=== PATIENT | female | born 1950 | race Caucasian/White ===

== ENCOUNTER 2021-05-18 09:02 | Inpatient (IN) | payer MEDICARE, OTHER ==
[~2021-05-18] VITALS: Ht 157.5 cm; Wt 128.0 kg
[2021-05-18 09:28] VITALS: BP 160/68; PULSE 67; TEMP 97.4
[2021-05-18] MEDS ORDERED: CEPHALEXIN500 M1 (10:15)
[2021-05-18 10:35] LABS: CALCIUM 9.6 mg/dL (8.4-10.2); CREATININE, serum 1.16 (0.52-1.25)
[2021-05-18 11:52] VITALS: BP 146/73; PULSE 75; TEMP 98.5
[2021-05-18 12:13] LABS: BASO % 0.3 % (0.0-2.0); EOS # 0.5 (0.0-0.7); EOS % 4.5 % (0-4.0); GRAN % 71.2 % (42.2-75.2); HEMOGLOBIN 11.2 g/dl (12.5-16.0); LYMPH % 17.7 % (20.0-51.0); MEAN CELL VOLUME 94 fl (80.0-100.0); MEAN CORPUSCULAR HEMOGLOBIN 30 pg (27.0-31.0); MEAN CORPUSCULAR HGB CONC 32 g/dl (33.0-37.0); MONO # 0.7 (0.1-0.6); MONO % 5.8 % (1.7-9.3); PLATELET COUNT 280 K/mm3 (130-400); RED BLOOD COUNT 3.77 M/mm3 (4.10-5.30); REDCELL DISTRIBUTION WIDTH-CV 14.6 % (11.5-14.5)
[2021-05-18 12:15] LABS: HEMATOCRIT 35.6 % (37.0-47.0)
[2021-05-18] MEDS ORDERED: GLUCOPHAGE1000 MG PO (13:01)
[2021-05-18] MEDS ORDERED: LIPITOR 80MG80 MG PO (13:01)
[2021-05-18] MEDS ORDERED: COREG 6.256.25 MG/TA PO (13:02)
[2021-05-18] MEDS ORDERED: PRINZIDE 12.5 M1 TA1 PO (13:02)
[2021-05-18] MEDS ORDERED: ZAROXOLYN5 MG PO (13:03)
[2021-05-18] MEDS ORDERED: PRILOSEC 20MG20 MG PO (13:03)
[2021-05-18] MEDS ORDERED: K-TAB20 PO (13:03)
[2021-05-18] MEDS ORDERED: ALDACTONE 25MG25 M1 PO (13:04)
[2021-05-18] MEDS ORDERED: PERCOCET 325 MG1 TA2 PO (13:04)
[2021-05-18] MEDS ORDERED: LASIX 80MG TABL80 MG PO (13:05)
[2021-05-18 13:13] LABS: MUCOUS Present /lpf; PH 8 (5-8); SQUAMOUS EPITHELIAL 0-2 /hpf; URINE APPEARANCE Clear; URINE BACTERIA None Seen /hpf; URINE BILIRUBIN Negative (NEGATIVE); URINE BLOOD Negative (NEGATIVE); URINE COLOR Straw; URINE GLUCOSE Negative (NEGATIVE); URINE KETONE Negative (NEGATIVE); URINE LEUKOCYTE ESTERASE 1+ (NEGATIVE); URINE NITRATE Negative (NEGATIVE); URINE PROTEIN(semi-quant) Negative (NEGATIVE); URINE RBC 0-2 /hpf; URINE UROBILINOGEN Negative (NEGATIVE)
[2021-05-18 15:59] LABS: IRON,SERUM 68 ug/dL (35-150)
[2021-05-18 16:08] LABS: TOTAL IRON BINDING CAPACITY 324 ug/dL (265-497)
[2021-05-18 17:04] VITALS: BP 119/97; BP 144/62; PULSE 79; TEMP 98.6
[2021-05-18 17:21] LABS: COLLECTION METHOD CLEAN CATCH
--- NOTE | 2021-05-18 18:33 | NUR ---
PT ADMITTED FROM HOME TODAY. HOSPITALIST MADE AWARE THAT PT IS HERE. ADMISSION ASSESSMENT COMPLETED. PT ON 3L OF OXYGEN SHE STATES THAT IS WHAT SHE USES AT HOME. PT ADMITTED WITH A CANE, A SMALL TANK OF PORTABLE OXYGEN, CELL PHONE, CLOTHES, DENTURE. IV ACCESS INVESTMENT SPECIALIST. TELE MONITOR PLACED. BLE SWOLLEN, WOUND NOTED ON PT LOWER EXTREMITY. PT ENCOURAGE TO ELEVATE BLE. URINE SAMPLES COLLECTED ORDERED. COVID SAMPLE COLLECTED.ISOLATION PRECAUTION MAINTAINED UNTIL TEST RESULTS RECEIVED. PT MADE AWARE OF THE VISITATION POLICY. COMFORT MEASURES IN PLACE. CALL-LIGHT IN REACH. BED IN LOW POSITION. WILL CONTINUE TO MONITOR.
[2021-05-18 20:39] VITALS: BP 119/52; PULSE 78; TEMP 97.6
--- NOTE | 2021-05-18 20:45 | NUR ---
Initial shift assessment done, sitting on edge of bed- no requests, VSS, bilateral lower legs w/3-4+ edema , left greater than right,, o2 at 2L/nc. Pleasant, alert/oriented. NPO after MN for GIUSEPPE/heart cath tomorrow
[2021-05-18 23:27] LABS: FOLATE (FOLIC ACID) 16.8 ng/mL (2.0-20.0)
--- NOTE | 2021-05-18 23:54 | NUR ---
PT WEARS 2 TO 3 LPM AT NIGHT WHEN SLEEPING. THIS RT ENTERED ROOM AT 1930 AND FOUND PT SLEEPING WHILE ON 2 LPM, PT SATURATIONS WERE 87%. THEREFORE, TEST WILL BE DONE ON PATIENT WITH 2 LPM ON. TEST WAS ORDERED TO BE DONE ON ROOM AIR BUT SATUARTIONS CANNOT BE MAINTAINED ABOVE 90 WHILE SLEEPING WITHOUT OXYGEN.
[2021-05-19] VITALS (15 sets, daily range): BP systolic 97–135; BP diastolic 44–69; PULSE 63–79; TEMP 97.5–98
--- NOTE | 2021-05-19 06:33 | NUR ---
Quiet night- slept well. NPO after MN. Overnight noc ox done last night. VSS.
[2021-05-19 06:57] LABS: HEMOGLOBIN 10.5 g/dl (12.5-16.0); MEAN CELL VOLUME 95 fl (80.0-100.0); MEAN CORPUSCULAR HEMOGLOBIN 30 pg (27.0-31.0); MEAN CORPUSCULAR HGB CONC 31 g/dl (33.0-37.0); MEAN PLATELET VOLUME 11.3 fl (7.4-10.4); PLATELET COUNT 277 K/mm3 (130-400); RED BLOOD COUNT 3.55 M/mm3 (4.10-5.30); REDCELL DISTRIBUTION WIDTH-CV 14.6 % (11.5-14.5)
[2021-05-19 06:59] LABS: HEMATOCRIT 33.7 % (37.0-47.0)
[2021-05-19 07:00] LABS: INR 1.1 (0.8-3.0); PROTHROMBIN TIME 12.6 SECONDS (9.7-12.8)
[2021-05-19 07:03] LABS: PARTIAL THROMBOPLASTIN TIME 29.7 SECONDS (26.0-37.0)
[2021-05-19 07:04] LABS: CALCIUM 9.6 mg/dL (8.4-10.2); CREATININE, serum 1.01 (0.52-1.25); POTASSIUM 4.1 mmol/L (3.4-5.0)
--- NOTE | 2021-05-19 08:05 | NUR ---
Pt off unit for GIUSEPPE and heart cath at this time.
--- NOTE | 2021-05-19 10:18 | NUR ---
Pt back from heart cath at this time. Resting comfortably in bed. Vitals stable. Right radial and right femoral sites CDI, soft w/o hematoma. Pt denies needs at this time. Continuing to monitor.
--- NOTE | 2021-05-19 11:29 | NUR ---
SW's met with the patient to discuss discharge plan. The patient lives in [place] with her , Min (c.ph#[phone]/h.ph#[phone]). She reports independence with ADLs and has a cane, walkers, and home oxygen from [employer]. The patient's PCP is Dr. Mitch Chahal and she receives her medications from [facility]. She reports no difficulties obtaining her meds. The patient does not have a DPOA-HC in EMR, but she states that she may have one completed. The patient was interested in obtaining a form though, in case she does not have one. EDIE provided. The patient plans to return home with her upon discharge. The patient has CHF. EDIE discussed home health services and how they can provide education for CHF. The patient declined home health. She reports that her daughter is an RN and that she can always call her if she has any questions. PT/OT has been ordered. EDIE to continue to follow. *Discharge plan: home with . Awaiting therapy's recs*
--- NOTE | 2021-05-19 22:19 | NUR ---
Patient is resting in bed, alert and oriented x 4, vital signs stable, no pain, nausea or vomiting. She is at 2 L 02 nasal canula. Still weraing the arm band. Incition in the right groin looks dry and clean. It is covered with gauze. She is using the spirometer with no problems. No further needs at this time. Call light within reach.
[2021-05-20 00:15] VITALS: BP 126/56; PULSE 66; TEMP 98.2
--- NOTE | 2021-05-20 06:03 | NUR ---
Patient has been stable along night. Continues with 2L O2 nasal canula. No further needs at this time. Call light within reach.
[2021-05-20 06:57] LABS: HEMOGLOBIN 11.1 g/dl (12.5-16.0); MEAN CELL VOLUME 95 fl (80.0-100.0); MEAN CORPUSCULAR HEMOGLOBIN 29 pg (27.0-31.0); MEAN CORPUSCULAR HGB CONC 31 g/dl (33.0-37.0); MEAN PLATELET VOLUME 10.7 fl (7.4-10.4); PLATELET COUNT 293 K/mm3 (130-400); RED BLOOD COUNT 3.78 M/mm3 (4.10-5.30); REDCELL DISTRIBUTION WIDTH-CV 14.5 % (11.5-14.5)
[2021-05-20 07:04] LABS: HEMATOCRIT 35.8 % (37.0-47.0)
[2021-05-20 07:11] LABS: CALCIUM 9.8 mg/dL (8.4-10.2); CREATININE, serum 0.9 (0.52-1.25); POTASSIUM 4.3 mmol/L (3.4-5.0)
[2021-05-20 07:15] VITALS: BP 136/68; PULSE 67; TEMP 97.9
--- NOTE | 2021-05-20 08:51 | NUR ---
Shift assessment preformed. Scheduled medications given. Patient denies any pain, discomfort, SOA, N/V/D. Patient is currently requiring 2L of O2 via nasal cannula. Hearth cath sites are dressed with bandaides, which are clean dry, and intact. VSS. Patient denies any further needs at this time. Call light in reach.
[2021-05-20 11:12] VITALS: BP 131/57; PULSE 70; TEMP 97.7
--- NOTE | 2021-05-20 12:09 | NUR ---
Access Analyst visited with patient but nothing else needed at this time.
--- NOTE | 2021-05-20 14:32 | NUR ---
Bumex drip started. Roger catheter placed. 8ml placed in ballon. Securement device in place. VSS. Patient denies any further needs at this time. Call light in reach.
[2021-05-20 16:49] VITALS: BP 122/52; PULSE 73; TEMP 97.8
--- NOTE | 2021-05-20 17:03 | NUR ---
Patient had an ok day. Bumex drip running as ordered. Patient has had good ouput. Patient denies any pain, discomfort, SOA, chest pain, N/V/D, or further needs at this time. Call light in reach.
[2021-05-20 19:31] VITALS: BP 116/46; PULSE 71; TEMP 98.4
--- NOTE | 2021-05-20 20:45 | NUR ---
Initial shift assessment done- denies pain, has Bumex drip IV at 5cc/hr [0.5mg/hr] , Roger with good amounts clear yellow urine. Bilateral lower extreity edema 3+, left > right. tele on. o2 at 2L/nc.
[2021-05-20 23:48] VITALS: BP 136/98; PULSE 73; TEMP 97.6
[2021-05-21 03:22] VITALS: BP 150/65; PULSE 74; TEMP 98.1
--- NOTE | 2021-05-21 05:08 | NUR ---
Quiet night- no requests, Bumex drip continues at 5cc/hr,, Very good output from Kana, has had 2400 out so far this shift,VSS
--- NOTE | 2021-05-21 06:02 | NUR ---
Another 575cc of urine out per Roger at this time
[2021-05-21 07:22] LABS: BASO % 0.3 % (0.0-2.0); EOS # 0.4 (0.0-0.7); EOS % 3.1 % (0-4.0); GRAN # 9.3 (1.4-6.5); GRAN % 79.3 % (42.2-75.2); LYMPH # 1.3 (1.2-3.4); LYMPH % 10.7 % (20.0-51.0); MEAN CELL VOLUME 93 fl (80.0-100.0); MEAN CORPUSCULAR HEMOGLOBIN 30 pg (27.0-31.0); MEAN CORPUSCULAR HGB CONC 32 g/dl (33.0-37.0); MEAN PLATELET VOLUME 11.2 fl (7.4-10.4); MONO # 0.7 (0.1-0.6); MONO % 6.2 % (1.7-9.3); PLATELET COUNT 267 K/mm3 (130-400); RED BLOOD COUNT 3.69 M/mm3 (4.10-5.30); REDCELL DISTRIBUTION WIDTH-CV 14.3 % (11.5-14.5)
[2021-05-21 07:27] VITALS: BP 130/55; PULSE 73; TEMP 98
[2021-05-21 07:27] LABS: HEMATOCRIT 34.4 % (37.0-47.0)
[2021-05-21 07:35] LABS: CALCIUM 9.6 mg/dL (8.4-10.2); CREATININE, serum 0.85 (0.52-1.25); POTASSIUM 3.5 mmol/L (3.4-5.0)
--- NOTE | 2021-05-21 07:45 | NUR ---
Scheduled medications given. Shift assessment preformed. Roger catheter in place, securment device in use, dependent drainage, no kinks in tubing. Patient denies any pain, discomfort, or further needs at this time. Bumex drip running as ordered. Call light in reach.
[2021-05-21 11:09] VITALS: BP 106/57; PULSE 74; TEMP 97.8
[2021-05-21 16:51] VITALS: BP 99/51; PULSE 70; TEMP 97.9
--- NOTE | 2021-05-21 18:42 | NUR ---
Patient has had an uneventful day. Bumex drip running as ordered. Patient BS have been running in the 2-[address] hundreds[address] Levemir ordered by Dr. Yu. Patient denies any pain, discomfort, SOA, or further needs at this time. Patient A&O. Call light in reach. VSS.
--- NOTE | 2021-05-21 19:56 | NUR ---
Initial shift assessment done- denies pain-denies SOB, bilateral lower legs edematous but much improved in the last 24 hrs. Bumex drip at 5cc/hr to right hand. Roger with good amounts clear yellow urine.
[2021-05-21 20:16] VITALS: BP 107/53; PULSE 72; TEMP 97.7
[2021-05-21 23:42] VITALS: BP 112/55; PULSE 74; TEMP 97.8
[2021-05-22 04:14] VITALS: BP 113/62; PULSE 67; TEMP 97.6
--- NOTE | 2021-05-22 06:24 | NUR ---
Quiet night-- no requests, VSS, good output from Roger, continues on Bumex drip at 5cc/hr.
[2021-05-22 06:53] LABS: BASO % 0.2 % (0.0-2.0); EOS # 0.3 (0.0-0.7); EOS % 2.4 % (0-4.0); GRAN # 10.7 (1.4-6.5); GRAN % 79.9 % (42.2-75.2); HEMOGLOBIN 11.2 g/dl (12.5-16.0); LYMPH # 1.4 (1.2-3.4); LYMPH % 10.4 % (20.0-51.0); MEAN CELL VOLUME 93 fl (80.0-100.0); MEAN CORPUSCULAR HEMOGLOBIN 30 pg (27.0-31.0); MEAN CORPUSCULAR HGB CONC 32 g/dl (33.0-37.0); MEAN PLATELET VOLUME 11.2 fl (7.4-10.4); MONO # 0.9 (0.1-0.6); MONO % 6.7 % (1.7-9.3); PLATELET COUNT 264 K/mm3 (130-400); RED BLOOD COUNT 3.78 M/mm3 (4.10-5.30); REDCELL DISTRIBUTION WIDTH-CV 14.4 % (11.5-14.5)
[2021-05-22 06:54] LABS: HEMATOCRIT 35.2 % (37.0-47.0)
[2021-05-22 07:00] LABS: CALCIUM 9.4 mg/dL (8.4-10.2); CREATININE, serum 1.13 (0.52-1.25); POTASSIUM 3.5 mmol/L (3.4-5.0)
[2021-05-22 07:58] VITALS: BP 114/58; PULSE 78; TEMP 98
--- NOTE | 2021-05-22 08:32 | NUR ---
Pt awake upon entry, eating breakfast. No C/O pain at this time. Shift assessment complete, left Pt call light in reach, needs met.
[2021-05-22] MEDS ORDERED: BUMEX2 MG PO (09:27)
[2021-05-22] MEDS ORDERED: OMNICEF 300MG300 MG PO (09:27)
[2021-05-22] MEDS ORDERED: B-121000 MCG PO (09:28)
[2021-05-22] MEDS ORDERED: PRINIVIL40 MG PO (09:29)
--- NOTE | 2021-05-22 09:57 | NUR ---
The hospitalist is ready to d/c the patient today. An exercise ox was ordered. RT notified SW that the patient qualified for 2 liters of oxygen. The patient is already established with [facility]. SW contacted Ayana at [facility] and updated her on the above. Ayana confirms that the patient is already established with them and receives oxygen from them. Ayana reports that she does not need any additional documentation or the exercise ox. SW met with the patient to review d/c plan. The patient plans to return home with her . SW presented and read the IM form outloud to her. The patient verbalized understanding and signed the form. SW provided her with a copy. No additional needs at this time.
--- NOTE | 2021-05-22 14:00 | NUR ---
Pt discharged to home, discussed discharge instructions with Pt. Pt escorted to entrance by PCT via WC, Pt left with spouse in private transportation.
== END 2021-05-22 14:00 | disposition home or self-care (01) | DRG 287 ==
LOC: MEDICAL 09:02
PROVIDERS: Physician Assistant; ADMIT Student in an Organized Health Care Education/Training Program
PROC: 4A023N6 Measurement of Cardiac Sampling and Pressure, Right Heart, Percutaneous Approach (ICD-10-PCS; principal; 2021-05-18)
PROC: B2111ZZ Fluoroscopy of Multiple Coronary Arteries using Low Osmolar Contrast (ICD-10-PCS; 2021-05-18)
DX: I11.0 Hypertensive heart disease with heart failure (principal); Q21.1 Atrial septal defect; E87.3 Alkalosis; J98.11 Atelectasis; N39.0 Urinary tract infection, site not specified; E87.70 Fluid overload, unspecified; I50.33 Acute on chronic diastolic (congestive) heart failure; I42.9 Cardiomyopathy, unspecified; E78.5 Hyperlipidemia, unspecified; I44.7 Left bundle-branch block, unspecified; G47.33 Obstructive sleep apnea (adult) (pediatric); K21.9 Gastro-esophageal reflux disease without esophagitis; Z90.710 Acquired absence of both cervix and uterus; Z90.89 Acquired absence of other organs; Z79.84 Long term (current) use of oral hypoglycemic drugs; Z20.822 Contact with and (suspected) exposure to COVID-19; I27.20 Pulmonary hypertension, unspecified; D64.9 Anemia, unspecified; I65.22 Occlusion and stenosis of left carotid artery; E04.1 Nontoxic single thyroid nodule
CPT/HCPCS: 99222-AI; 99232-AI; 99233-AI; 99239; A9284; C1769; C1894; J1644; J1650; J1815; J1940; J2250; J2704; J3010; Q9967

== ENCOUNTER 2021-05-24 11:47 | Inpatient (IN) | payer MEDICARE, OTHER ==
[~2021-05-24] VITALS: Ht 157.5 cm; Wt 149.1 kg
[~2021-05-24 11:47] MED LIST: ALDACTONE 25MG25 M1 PO; B-121000 MCG PO; BUMEX2 MG PO; CEPHALEXIN500 M1; COREG 6.256.25 MG/TA PO; GLUCOPHAGE1000 MG PO; K-TAB20 PO; LASIX 80MG TABL80 MG PO; LIPITOR 80MG80 MG PO; OMNICEF 300MG300 MG PO; PERCOCET 325 MG1 TA2 PO; PRILOSEC 20MG20 MG PO; PRINIVIL40 MG PO; PRINZIDE 12.5 M1 TA1 PO; ZAROXOLYN5 MG PO
[2021-05-24 13:03] LABS: BASO # 0.1 (0.0-0.2); BASO % 0.4 % (0.0-2.0); EOS # 0.8 (0.0-0.7); GRAN # 11.7 (1.4-6.5); GRAN % 72.3 % (42.2-75.2); HEMOGLOBIN 11.3 g/dl (12.5-16.0); LYMPH # 2.6 (1.2-3.4); MEAN CELL VOLUME 95 fl (80.0-100.0); MEAN CORPUSCULAR HEMOGLOBIN 29 pg (27.0-31.0); MEAN CORPUSCULAR HGB CONC 31 g/dl (33.0-37.0); MEAN PLATELET VOLUME 11.3 fl (7.4-10.4); MONO # 0.9 (0.1-0.6); MONO % 5.7 % (1.7-9.3); PLATELET COUNT 295 K/mm3 (130-400); RED BLOOD COUNT 3.86 M/mm3 (4.10-5.30)
[2021-05-24 13:04] LABS: HEMATOCRIT 36.5 % (37.0-47.0)
[2021-05-24 13:12] LABS: BILIRUBIN,TOTAL 0.5 mg/dL (0.0-1.0); CALCIUM 8.9 mg/dL (8.4-10.2); CREATININE, serum 5.78 (0.52-1.25); TOTAL PROTEIN 8.3 gm/dL (6.4-8.2)
[2021-05-24 13:23] LABS: TROPONIN-I 0.016 ng/mL (0.000-0.035)
[2021-05-24 14:06] LABS: COLLECTION METHOD CLEAN CATCH
[2021-05-24 14:22] LABS: CALCIUM 8.5 mg/dL (8.4-10.2); CREATININE, serum 5.62 (0.52-1.25); POTASSIUM 4.6 mmol/L (3.4-5.0)
[2021-05-24 14:31] LABS: MUCOUS Present /lpf; PH 5 (5-8); URINE APPEARANCE Cloudy; URINE BACTERIA None Seen /hpf; URINE BILIRUBIN Negative (NEGATIVE); URINE BLOOD 1+ (NEGATIVE); URINE COLOR Amber; URINE GLUCOSE Negative (NEGATIVE); URINE KETONE Negative (NEGATIVE); URINE LEUKOCYTE ESTERASE Trace (NEGATIVE); URINE NITRATE Negative (NEGATIVE); URINE PROTEIN(semi-quant) 1+ (NEGATIVE); URINE UROBILINOGEN Negative (NEGATIVE)
--- NOTE | 2021-05-24 18:04 | NUR ---
Pt arrived to medical unit room 351 from ED. Admission assessment and med rec completed. Pt reports she has not filled any prescriptions since discharge on 05/22 and therefore has not taken any of her new medications. She also reports that she has continued taking lisinopril/HCTZ despite her prescription being changed to only lisinopril. Reports no urination since discharging on 05/22 and some mild nausea yesterday. Denies other symptoms. Call light in reach. Continuing to monitor.
[2021-05-24 18:10] VITALS: BP 107/55; PULSE 80; TEMP 97.6
[2021-05-24 18:58] VITALS: BP 92/46; PULSE 81; TEMP 98.5
[2021-05-24 23:52] VITALS: BP 98/52; PULSE 59; TEMP 97.8
--- NOTE | 2021-05-25 00:23 | NUR ---
Assessment completed, alert and orieted. VS are stable , patient has a schofield catheter draining good output of 1000ml clear orange in color. Her legs are dry and have +1 edema noted. Denies pain/SOB. She is on 2L which is her baseline. No further complains , call light is within reach and will continue to monitor.
[2021-05-25 03:45] VITALS: BP 99/60; PULSE 70; TEMP 98
--- NOTE | 2021-05-25 07:00 | NUR ---
Report with ELLEN Hernandez. Pt resting in bed, awake and alert, denies needs at this time. IVF's complete and disconnected. Call light in reach.
[2021-05-25 08:12] LABS: BASO % 0.3 % (0.0-2.0); EOS # 0.5 (0.0-0.7); EOS % 4.7 % (0-4.0); GRAN # 7.9 (1.4-6.5); GRAN % 74.4 % (42.2-75.2); HEMOGLOBIN 10.4 g/dl (12.5-16.0); LYMPH # 1.5 (1.2-3.4); LYMPH % 13.8 % (20.0-51.0); MEAN CELL VOLUME 94 fl (80.0-100.0); MEAN CORPUSCULAR HEMOGLOBIN 30 pg (27.0-31.0); MEAN CORPUSCULAR HGB CONC 31 g/dl (33.0-37.0); MEAN PLATELET VOLUME 11.4 fl (7.4-10.4); MONO # 0.7 (0.1-0.6); MONO % 6.2 % (1.7-9.3); PLATELET COUNT 264 K/mm3 (130-400); RED BLOOD COUNT 3.52 M/mm3 (4.10-5.30); REDCELL DISTRIBUTION WIDTH-CV 14.8 % (11.5-14.5)
[2021-05-25 08:18] LABS: HEMATOCRIT 33.2 % (37.0-47.0)
[2021-05-25 08:20] LABS: CALCIUM 8.5 mg/dL (8.4-10.2); CREATININE, serum 2.99 (0.52-1.25); POTASSIUM 4.6 mmol/L (3.4-5.0)
[2021-05-25 08:49] VITALS: BP 145/53; PULSE 78; TEMP 97.8
--- NOTE | 2021-05-25 09:55 | NUR ---
Initial visit; Patient thanked [employer] for looking in on her and offering God's blessings and keeping her in [employer]'s prayers.
--- NOTE | 2021-05-25 10:48 | NUR ---
SW met with the patient to discuss discharge plan and re-admit. The patient recently discharged from the hospital, 05/22, and returned back home with her . She then returned back to the ED yesterday, 05/24, due to urinary retention and not being able to urinate for the past two days. The patient lives in [place] with her , Min (c.#[phone]). She reports independence with ADLs and has a cane, walkers, and home oxygen from [employer]. The patient's PCP is Dr. Mitch Chahal and she receives her medications from [facility]. She reports no difficulties obtaining her meds. The patient does not have a DPOA-HC and she was not interested in completing one while here. She states that she already has a DPOA-HC form at home. The patient plans to return home with her upon discharge. Due to re-admit and the patient having CHF, SW discussed home health services and it's benefits. The patient declined home health services again. She states that her daughter is and RN and is able to answer her questions and help her out, when needed. SW to follow as needed. *Discharge plan: home with *
[2021-05-25 12:44] VITALS: BP 131/57; PULSE 84; TEMP 98.1
[2021-05-25 16:00] VITALS: BP 134/47; PULSE 83; TEMP 98.1
[2021-05-25 20:00] VITALS: BP 118/48; PULSE 78; TEMP 98.6
--- NOTE | 2021-05-25 20:00 | NUR ---
Patient is lying in bed watching TV, alert and oriented X4, VSS, no complains about pain, nausea or vomiting. She is on tele. Patient has severe dryness in both lower extremities, with a closed healing skin laceration in the right lower leg. Patient has schofield in place, 2L of O2 nasal canula. No further needs at this time. Call light within reach.
[2021-05-26 04:08] VITALS: BP 152/65; PULSE 75; TEMP 97.8
--- NOTE | 2021-05-26 06:58 | NUR ---
Patient has had a calm night. She has been stable. Patient report no pain, nausea or vomiting. The Tele was discontinued. Contnue with catheter schofield. No further needs at this time. Calllight sithin reach. Shift report will be given to day nurse.
[2021-05-26 07:53] LABS: BASO % 0.3 % (0.0-2.0); EOS # 0.5 (0.0-0.7); EOS % 5.1 % (0-4.0); GRAN # 6.6 (1.4-6.5); GRAN % 70.5 % (42.2-75.2); HEMOGLOBIN 10.7 g/dl (12.5-16.0); LYMPH # 1.5 (1.2-3.4); MEAN CELL VOLUME 95 fl (80.0-100.0); MEAN CORPUSCULAR HEMOGLOBIN 30 pg (27.0-31.0); MEAN CORPUSCULAR HGB CONC 31 g/dl (33.0-37.0); MEAN PLATELET VOLUME 11.3 fl (7.4-10.4); MONO # 0.7 (0.1-0.6); MONO % 7.9 % (1.7-9.3); PLATELET COUNT 277 K/mm3 (130-400); RED BLOOD COUNT 3.63 M/mm3 (4.10-5.30); REDCELL DISTRIBUTION WIDTH-CV 14.4 % (11.5-14.5)
[2021-05-26 07:54] LABS: HEMATOCRIT 34.6 % (37.0-47.0)
[2021-05-26 08:02] LABS: CREATININE, serum 1.47 (0.52-1.25); POTASSIUM 4.5 mmol/L (3.4-5.0)
[2021-05-26 08:03] LABS: CALCIUM 9.3 mg/dL (8.4-10.2)
[2021-05-26 08:30] VITALS: BP 141/61; PULSE 73; TEMP 98.6
--- NOTE | 2021-05-26 09:45 | NUR ---
Shift assessment complete. Pt A&Ox4, lying in bed. Heart RRR. Lungs CTA. Roger in place w/2000 mls clear yellow urine. Denies needs or concerns at this time. Call light in reach. Continuing to monitor.
[2021-05-26] MEDS ORDERED: PRINIVIL40 MG PO ×2 (10:57)
[2021-05-26] MEDS ORDERED: BUMEX 1MG TA1 MG/TA1 PO (10:59)
[2021-05-26] MEDS ORDERED: OMNICEF 300MG300 MG PO (11:00)
[2021-05-26] MEDS ORDERED: B-121000 MCG PO (11:04)
--- NOTE | 2021-05-26 11:15 | NUR ---
Roger catheter removed at this time.
[2021-05-26 12:23] VITALS: BP 133/76; PULSE 76; TEMP 98.3
[2021-05-26] MEDS ORDERED: PRINIVIL20 MG PO (13:50)
[2021-05-26 16:08] VITALS: BP 138/65; PULSE 75; TEMP 98
--- NOTE | 2021-05-26 16:50 | NUR ---
Discharge instructions discussed w/pt and all questions answered. IV to right AC removed w/tip intact. Pt escorted out via wheelchair at this time w/all belongings.
--- NOTE | 2021-05-26 17:00 | NUR ---
Pt arrived to medical unit room 354 from ICU around 1630. Oriented pt to room. Med rec updated. Pt A&Ox4 but speech slurred and difficult to understand. Heart RRR. Lungs CTA. Roger in place w/clear yellow output. Denies needs. Call light in reach and bed alarm on. Continuing to monitor.
== END 2021-05-26 16:50 | disposition home or self-care (01) | DRG 683 ==
LOC: COL.ER 11:47 → MEDICAL 15:16
PROVIDERS: Emergency Medicine; Physician Assistant; ADMIT Internal Medicine
DX: N17.9 Acute kidney failure, unspecified (principal); N39.0 Urinary tract infection, site not specified; E87.1 Hypo-osmolality and hyponatremia; I50.32 Chronic diastolic (congestive) heart failure; E66.2 Morbid (severe) obesity with alveolar hypoventilation; I42.9 Cardiomyopathy, unspecified; Z68.44 Body mass index [BMI] 60.0-69.9, adult; R33.9 Retention of urine, unspecified; I11.0 Hypertensive heart disease with heart failure; I95.9 Hypotension, unspecified; D64.9 Anemia, unspecified; I65.22 Occlusion and stenosis of left carotid artery; E04.1 Nontoxic single thyroid nodule; K21.9 Gastro-esophageal reflux disease without esophagitis; K44.9 Diaphragmatic hernia without obstruction or gangrene; I44.7 Left bundle-branch block, unspecified; D72.829 Elevated white blood cell count, unspecified; I27.20 Pulmonary hypertension, unspecified; R09.02 Hypoxemia; E11.9 Type 2 diabetes mellitus without complications; G47.33 Obstructive sleep apnea (adult) (pediatric); E66.01 Morbid (severe) obesity due to excess calories; E78.5 Hyperlipidemia, unspecified; Z79.84 Long term (current) use of oral hypoglycemic drugs; Z79.891 Long term (current) use of opiate analgesic; Z90.710 Acquired absence of both cervix and uterus
CPT/HCPCS: 99222-AI; 99232-AI; 99239; J0696; J1644; J1815; J7030

== ENCOUNTER 2021-07-10 08:53 | Inpatient (IN) | payer MEDICARE, OTHER ==
[~2021-07-10] VITALS: Ht 157.5 cm; Wt 130.2 kg
[~2021-07-10 08:53] MED LIST changes: +BUMEX 1MG TA1 MG/TA1 PO; +PRINIVIL20 MG PO
[2021-07-10 09:59] VITALS: BP 132/53; BP 137/45; PULSE 72; TEMP 97.6
[2021-07-10 10:52] LABS: BASO % 0.2 % (0.0-2.0); EOS # 0.5 (0.0-0.7); EOS % 4.1 % (0-4.0); GRAN % 76.8 % (42.2-75.2); LYMPH # 1.7 (1.2-3.4); LYMPH % 13.2 % (20.0-51.0); MEAN CELL VOLUME 94 fl (80.0-100.0); MEAN CORPUSCULAR HGB CONC 32 g/dl (33.0-37.0); MEAN PLATELET VOLUME 10.9 fl (7.4-10.4); MONO # 0.7 (0.1-0.6); MONO % 5.4 % (1.7-9.3); PLATELET COUNT 285 K/mm3 (130-400); RED BLOOD COUNT 3.23 M/mm3 (4.10-5.30); REDCELL DISTRIBUTION WIDTH-CV 14.5 % (11.5-14.5)
[2021-07-10 10:59] LABS: HEMATOCRIT 30.3 % (37.0-47.0); HEMOGLOBIN 9.7 g/dl (12.5-16.0); MEAN CORPUSCULAR HEMOGLOBIN 30 pg (27.0-31.0)
--- NOTE | 2021-07-10 11:21 | NUR ---
PT ARRIVED ON FLOOR. ALERT/ORIENTED X4. PLEASANT AND COOPERATIVE TO CARE. PT DENIES PAIN. VITALS NORMAL. L FOREARM IV PLACED. PT HAS NO NEEDS AT THIS TIME. CARDIOLOGY CONSULT CALLED
[2021-07-10 11:26] LABS: BILIRUBIN,TOTAL 0.2 mg/dL (0.2-1.2); CALCIUM 9.3 mg/dL (8.4-10.2); MAGNESIUM 1.9 mg/dL (1.6-2.6); POTASSIUM 4.5 mmol/L (3.5-4.5); TOTAL PROTEIN 7.1 gm/dL (6.2-8.1)
[2021-07-10] MEDS ORDERED: BUMEX2 MG PO (11:28)
[2021-07-10] MEDS ORDERED: PRINIVIL10 MG PO (11:29)
[2021-07-10] MEDS ORDERED: K-TAB20 PO (11:31)
[2021-07-10 11:35] VITALS: BP 122/58; PULSE 77; TEMP 97.7
[2021-07-10 11:45] LABS: CREATININE, serum 1.45 mg/dL (0.57-1.11)
--- NOTE | 2021-07-10 14:38 | NUR ---
PT BLE DRESSING CHANGE DONE AT 1400. ORDERED BUMEX DRIP STARTED AT 1330. CALLED LAB, BUT [facility] SAID THEY HAD OTHER EMERGENT ORDERS TO DO FIRST. CALLED AGAIN AT 1430, AND LAB SAID THEY WERE WORKING ON IT. WILL START BUMEX SHELL WHEN LAB DELIVERS BUMEX
--- NOTE | 2021-07-10 15:11 | NUR ---
CHAVES INSERTED PER PT REQUEST FOR DIURESING
--- NOTE | 2021-07-10 15:16 | NUR ---
PT CHF AND FLUID OVERLOAD IS NOT NEW. PATIENT HAS HX OF AND HAS BEEN DEALING WITH FOR AWHILE. DOES NOT NEED ALL HANDOUTS. HOWEVER, SOME HANDOUTS WERE PROVIDED TO PT
[2021-07-10 16:13] VITALS: BP 132/50; PULSE 79; TEMP 97.9
--- NOTE | 2021-07-10 17:23 | NUR ---
PT HAD UNEVENTFUL SHIFT. ON BUMEX DRIP FOR FLUID OVERLOAD. PT EATING DINNER, SITTING UP IN BED. DENIES PAIN. NO NEEDS THAT THIS TIME. CALL MCLEOD IN REACH
[2021-07-10 17:25] LABS: CALCIUM 9.2 mg/dL (8.4-10.2); CREATININE, serum 1.33 mg/dL (0.57-1.11); POTASSIUM 4.3 mmol/L (3.5-4.5)
[2021-07-10 19:03] VITALS: BP 128/46; PULSE 74; TEMP 98
[2021-07-10 21:20] LABS: CALCIUM 9.1 mg/dL (8.4-10.2); CREATININE, serum 1.31 mg/dL (0.57-1.11); POTASSIUM 4.2 mmol/L (3.5-4.5)
[2021-07-10 22:49] VITALS: BP 133/49; PULSE 72; TEMP 97.7
[2021-07-11] VITALS (7 sets, daily range): BP systolic 118–139; BP diastolic 49–90; PULSE 70–81; TEMP 97.8–98.4
--- NOTE | 2021-07-11 | NUR ---
Patient assessed aroudn 2100. Alert and oriented. Deneis having pain and discomfort. On oxygen at 2 L/min via NC. Continues to Bumex drip to left forearm per orders. Indwelling schofield catheter patent, draining clear yellow urine via dependent drainage. Dressing to wound on LLE CDI, no drainage at this time. Wounds to RLE are CLARA, no drainage. 3+ edema BLE. Voices no questions, needs, or concerns at this time. Resting in bed with call light within reach.
--- NOTE | 2021-07-11 05:05 | NUR ---
Patient continues on Bumex drip per orders. Good urine output-see I&O flowsheets. Voices no questions, needs, or concerns at this time. Resting in bed with call light within reach.
[2021-07-11 06:50] LABS: BASO % 0.2 % (0.0-2.0); EOS # 0.4 (0.0-0.7); EOS % 3.6 % (0-4.0); GRAN # 9.2 (1.4-6.5); GRAN % 75.7 % (42.2-75.2); HEMOGLOBIN 10.1 g/dl (12.5-16.0); LYMPH # 1.6 (1.2-3.4); LYMPH % 13.5 % (20.0-51.0); MEAN CELL VOLUME 97 fl (80.0-100.0); MEAN CORPUSCULAR HEMOGLOBIN 30 pg (27.0-31.0); MEAN CORPUSCULAR HGB CONC 31 g/dl (33.0-37.0); MEAN PLATELET VOLUME 11.1 fl (7.4-10.4); MONO # 0.8 (0.1-0.6); MONO % 6.5 % (1.7-9.3); PLATELET COUNT 292 K/mm3 (130-400); RED BLOOD COUNT 3.38 M/mm3 (4.10-5.30); REDCELL DISTRIBUTION WIDTH-CV 14.5 % (11.5-14.5)
[2021-07-11 06:53] LABS: HEMATOCRIT 32.7 % (37.0-47.0)
[2021-07-11 07:22] LABS: CALCIUM 9.5 mg/dL (8.4-10.2); CREATININE, serum 1.18 mg/dL (0.57-1.11); MAGNESIUM 1.8 mg/dL (1.6-2.6)
--- NOTE | 2021-07-11 08:50 | NUR ---
PT PLEASANT, AOX4, DENIES PAIN IN LLE AT THIS TIME, LLE DRESSED AT THIS TIME. PT ATE 100% BREAKFAST, ASSESSMENT PERFORMED, VITALS REVIEWED, MEDICATIONS GIVEN, WILL OBTAIN WOUND CULTURE WITH DRESSING CHANGE LATER TODAY, NO OTHER NEEDS
--- NOTE | 2021-07-11 11:06 | NUR ---
SW met with patient at b/s, pt is a/o, states she lives in [place] with her , Min ([phone]). Patient is current with [facility] and is on 2L 02 at night; She states she has a cane, fww, and shower chair if needed. PCP is Dr. Chahal in [place]. This worker discussed MPOA with patient and she is interested but would like to have a conversation with her and daughter prior to completing a form. SW will continue to follow for d/c needs. *D/C home pending tests
--- NOTE | 2021-07-11 11:32 | NUR ---
DRESSING FALLING OFF OF PT LEG, WOUND CULTURE OBTAINED AND LEG WASHED AND REDRESSED WITH XEROFORM GAUZE, ABD PAD AND THEN WRAPPED WITH ROLLED GAUZE AND MERCEDES WRAP.
--- NOTE | 2021-07-11 12:29 | NUR ---
First visit from the capacity planning manager. No needs right now.
--- NOTE | 2021-07-11 17:23 | NUR ---
PT PLEASANT, AOX4, DENIES PAIN, DRESSING CHANGED ON LLE, PT ORDERED DINNER, NO OTHER NEEDS
--- NOTE | 2021-07-11 20:57 | NUR ---
ALERT AND OX 4. DENIES SOA, CHEST PAIN OR LIGHTHEADED. DENIES OVERALL PAIN. BUMEX GTT AT 5ML/HR. GOOD URINE OUTPT/CHAVES CATH TO DD. PM MEDS GIVEN. EDEMA NOTED BUT IMPROVING PER REPORT. CALL LIGHT WI REACH. NEEDS MET.
[2021-07-12 03:54] VITALS: BP 122/79; PULSE 80; TEMP 97.8
--- NOTE | 2021-07-12 05:26 | NUR ---
RESTED THROUGH THE NIGHT WITHOUT INCIDENT. NEEDS MET.
[2021-07-12 07:30] VITALS: BP 149/65; PULSE 69; TEMP 97.1
[2021-07-12 08:35] LABS: BASO % 0.2 % (0.0-2.0); EOS # 0.5 (0.0-0.7); EOS % 4.1 % (0-4.0); GRAN # 9.2 (1.4-6.5); GRAN % 76.3 % (42.2-75.2); LYMPH # 1.5 (1.2-3.4); LYMPH % 12.7 % (20.0-51.0); MEAN CELL VOLUME 96 fl (80.0-100.0); MEAN CORPUSCULAR HEMOGLOBIN 30 pg (27.0-31.0); MEAN CORPUSCULAR HGB CONC 31 g/dl (33.0-37.0); MEAN PLATELET VOLUME 10.8 fl (7.4-10.4); MONO # 0.8 (0.1-0.6); MONO % 6.2 % (1.7-9.3); PLATELET COUNT 297 K/mm3 (130-400); RED BLOOD COUNT 3.67 M/mm3 (4.10-5.30); REDCELL DISTRIBUTION WIDTH-CV 14.3 % (11.5-14.5)
[2021-07-12 08:43] LABS: HEMATOCRIT 35.1 % (37.0-47.0)
[2021-07-12 09:06] LABS: CREATININE, serum 1.25 mg/dL (0.57-1.11); POTASSIUM 3.6 mmol/L (3.5-4.5)
[2021-07-12 11:07] VITALS: BP 138/52; PULSE 75; TEMP 97.8
[2021-07-12 15:50] VITALS: BP 135/57; PULSE 71; TEMP 97.5
[2021-07-12 20:00] VITALS: BP 131/54; PULSE 66; TEMP 98.1
--- NOTE | 2021-07-12 20:00 | NUR ---
Assessment complete. Patient alert and oriented with no complaints of pain. She wears 2 liters O2, which is her baseline for the evening time. Lungs are clear with diminished bases and HR is normal/regular. LLE leg wound is dress with zeroform, gauze and hiral bandage and is CDI. Comfort measure provided and call light within reach.
[2021-07-13 04:30] VITALS: BP 151/72; PULSE 66; TEMP 97.7
--- NOTE | 2021-07-13 06:43 | NUR ---
Patient has had an uneventful and restful night. No complaints of pain or additional concerns.
[2021-07-13 06:58] LABS: BASO % 0.3 % (0.0-2.0); EOS # 0.6 (0.0-0.7); EOS % 4.9 % (0-4.0); GRAN # 9.2 (1.4-6.5); GRAN % 76.9 % (42.2-75.2); HEMOGLOBIN 11.1 g/dl (12.5-16.0); LYMPH # 1.4 (1.2-3.4); LYMPH % 11.5 % (20.0-51.0); MEAN CELL VOLUME 95 fl (80.0-100.0); MEAN CORPUSCULAR HEMOGLOBIN 30 pg (27.0-31.0); MEAN CORPUSCULAR HGB CONC 31 g/dl (33.0-37.0); MEAN PLATELET VOLUME 11.1 fl (7.4-10.4); MONO # 0.7 (0.1-0.6); PLATELET COUNT 301 K/mm3 (130-400); RED BLOOD COUNT 3.74 M/mm3 (4.10-5.30); REDCELL DISTRIBUTION WIDTH-CV 14.1 % (11.5-14.5)
[2021-07-13 07:01] LABS: HEMATOCRIT 35.6 % (37.0-47.0)
[2021-07-13 07:02] VITALS: BP 146/63; PULSE 67; TEMP 97.6
[2021-07-13 07:25] LABS: CALCIUM 10.2 mg/dL (8.4-10.2); CREATININE, serum 1.08 mg/dL (0.57-1.11); MAGNESIUM 1.7 mg/dL (1.6-2.6)
--- NOTE | 2021-07-13 09:00 | NUR ---
PT PLEASANT, AOX4, ASSESSMENT PERFORMED, CALL LIGHT IN BED WITH PT, LEGS WRAPPED, NO OTHER NEEDS
[2021-07-13] MEDS ORDERED: LEVAQUIN 750MG750 M1 PO (10:31)
[2021-07-13] MEDS ORDERED: ZAROXOLYN5 MG PO (10:32)
[2021-07-13 12:38] VITALS: BP 145/66; PULSE 77; TEMP 97.7
--- NOTE | 2021-07-13 13:07 | NUR ---
Patient was encouraged to accept home health services by doc; however, this social secretary spoke with patient at bedside to provide her a list of HHC agencies but patient adamantly refused, stating she does everything for her and she is "always on the move" when she's at home. This worker informed Dr. Yu that patient refused hhc. *D/C Plan: discharge home with no needs
--- NOTE | 2021-07-13 13:35 | NUR ---
STUDENT NURSE REPORTS PT URINATED. BRITTANY SHEIKH NOTIFIED AND PT OK TO DISCHARGE
--- NOTE | 2021-07-13 13:48 | NUR ---
Primary nurse was assisted with [phone] patient care by [employer] student Keke Woodward and [employer] instructor Deepika Parsons MSN, RN.
--- NOTE | 2021-07-13 15:19 | NUR ---
PT ESCORTED OUT VIA WHEELCHAIR. IV REMOVED, DISCHARGE PAPERWORK PROVIDED, TELE REMOVED
== END 2021-07-13 15:20 | disposition home or self-care (01) | DRG 291 ==
LOC: MEDICAL 08:53
PROVIDERS: Physician Assistant; ADMIT Internal Medicine
DX: I13.0 Hypertensive heart and chronic kidney disease with heart failure and stage 1 through stage 4 chronic kidney disease, or unspecified chronic kidney disease (principal); I50.43 Acute on chronic combined systolic (congestive) and diastolic (congestive) heart failure; E87.3 Alkalosis; N17.9 Acute kidney failure, unspecified; L03.116 Cellulitis of left lower limb; Z68.43 Body mass index [BMI] 50.0-59.9, adult; N18.4 Chronic kidney disease, stage 4 (severe); K21.9 Gastro-esophageal reflux disease without esophagitis; G47.33 Obstructive sleep apnea (adult) (pediatric); E04.1 Nontoxic single thyroid nodule; I65.22 Occlusion and stenosis of left carotid artery; E78.5 Hyperlipidemia, unspecified; D64.9 Anemia, unspecified; E87.70 Fluid overload, unspecified; I44.7 Left bundle-branch block, unspecified; E66.01 Morbid (severe) obesity due to excess calories; Z90.89 Acquired absence of other organs; Z98.51 Tubal ligation status
CPT/HCPCS: 99223-AI; 99232-AI; 99239; J0696; J1644; J1815